=== PATIENT | male | born 1965 | race Caucasian/White ===

== ENCOUNTER 2019-01-23 09:27 | Day surgery (SDC) | payer OTHER ==
[2019-01-20 10:07] VITALS: BMI 27.8
[2019-01-23 09:59] VITALS: TEMP 98.1
[2019-01-23] MEDS ORDERED: KETOROLAC TROMETHAMINE 30 MG/1 ML VIAL ONE (10:35)
[2019-01-23] MEDS ORDERED: MIDAZOLAM HCL 2 MG/2 ML SINGLE DOSE VIAL ONE ×2 (10:35→11:01)
--- NOTE | 2019-01-23 11:33 | OP ---
Operative Note - Note: Operative Date: 01/23/19 Pre-Operative Diagnosis: Right renal stone Operation: Right ESWL Findings: 6 mm mid pole Right renal stone Post-Operative Diagnosis: Same as Pre-op Surgeon: Rush Price Anesthesia: Fractional Estimated Blood Loss (mls): 0 Drains, Volume Out (mls): 0 Operative Report Dictated: Yes
[2019-01-23 14:19] VITALS: BP 126/74; PULSE 66
--- NOTE | 2019-01-23 18:22 | OP ---
DATE OF OPERATION: 01/23/2019 PREOPERATIVE DIAGNOSIS: Right renal stone. POSTOPERATIVE DIAGNOSIS: Right renal stone. PROCEDURE: Right extracorporeal shock-wave lithotripsy. ATTENDING: Tim Priest MD ANESTHESIA: Fractional. DESCRIPTION OF PROCEDURE: Patient was brought in the operating room and placed in a supine position on the operating room table. Ultrasonography and fluoroscopy were performed. A 6-mm right mid pole stone was identified. At this point, anesthesia and preoperative antibiotics were administered. Shock-wave lithotripsy was then started; 2500 impulses at 17 joules of power were administered to the stone with excellent fragmentation of the stone under real time ultrasonography and fluoroscopy. There were no complications noted. The patient tolerated the procedure very well. TIM PRIEST M.D. [id number]
== END 2019-01-23 14:20 | disposition home or self-care (01) ==
LOC: JASU-SURG 09:27 → JOR 09:27 → JASU-SURG 14:20
PROVIDERS: ATTEND Urology
PROC: 0TF3XZZ Fragmentation in Right Kidney Pelvis, External Approach (ICD-10-PCS; principal; 2019-01-23 11:00)
DX: N20.0 Calculus of kidney (principal)
CPT/HCPCS: 82962

== ENCOUNTER 2022-11-23 05:17 | Day surgery (SDC) | payer OTHER ==
[2022-11-19 11:29] VITALS: BMI 30.5
[2022-11-23 13:51] VITALS: RESP 18
[2022-11-23] MEDS ORDERED: FENTANYL CITRATE/PF 50 MCG/ML VIAL ONE (17:04)
[2022-11-23] MEDS ORDERED: MIDAZOLAM HCL 2 MG/2 ML SINGLE DOSE VIAL ONE ×2 (17:06→17:18)
[2022-11-23 19:18] VITALS: BP 125/68; PULSE 72; TEMP 98
== END 2022-11-23 18:53 | disposition home or self-care (01) ==
LOC: JASU-SURG 05:17
PROVIDERS: ATTEND Urology
PROC: 0TF3XZZ Fragmentation in Right Kidney Pelvis, External Approach (ICD-10-PCS; principal; 2022-11-23 15:00)
DX: N20.0 Calculus of kidney (principal)
CPT/HCPCS: 82962